=== PATIENT | male | born 1970 | race African-American/Black ===

== ENCOUNTER 2021-04-01 00:30 | Emergency (ER) | payer MEDICAID ==
[~2021-04-01] VITALS: Ht 162.6 cm; Wt 129.1 kg
[2021-04-01 00:42] VITALS: Ht 162.6 cm; Wt 129.1 kg
[2021-04-01] MEDS ORDERED: VITAMIN D-40010 MCG PO (00:44)
[2021-04-01] MEDS ORDERED: NORVASC5 MG PO (00:44)
[2021-04-01] MEDS ORDERED: [UNRECOGNIZED DRUG - REMARK] (00:45)
[2021-04-01 02:00] LABS: CALC OSMOLALITY 271 mosm/kg (275-300); CALCIUM 8.9 mg/dL (8.5-10.1); CARBON DIOXIDE 25.6 mmol/L (21.0-32.0); CHLORIDE - SERUM 104 mmol/L (98-107); CREATININE - SERUM 0.9 mg/dL (0.6-1.3); GLUCOSE 88 mg/dL (74-106); POTASSIUM - SERUM 3.8 mmol/L (3.5-5.1); SODIUM 137 mmol/L (136-145); UREA NITROGEN 10 mg/dL (7-18); eGFR NON AFRICAN AMERICAN > 90 mL/min (90-120)
[2021-04-01 02:12] LABS: ALBUMIN 3.6 g/dL (3.4-5.0); ALKALINE PHOSPHATASE 86 U/L (30-120); ALT (SGPT) 9 U/L (10-68); BILIRUBIN - TOTAL 0.28 mg/dL (0.2-1.3); PRO BNP 74 pg/mL (0-125); PROTEIN - SERUM 7.7 g/dL (6.4-8.2)
[2021-04-01 02:14] LABS: BASOPHILS 0.6 % (0-2); EOSINOPHILS 3.6 % (0-7); HEMOGLOBIN 12.8 g/dL (13.5-17.5); LYMPHOCYTES 30.9 % (15-50); MCH 27.5 pg (26.0-34.0); MCHC 32.1 g/dL (31.0-37.0); MCV 85.7 fL (80.0-100.0); MEAN PLATELET VOLUME 9.3 fL (7.4-10.4); MONOCYTES 3.7 % (2-11); NEUTROPHILS 61.2 % (40-80); PLATELET COUNT 214 10x3/uL (130-400); RBC 4.67 10x6/uL (4.20-6.10); RDW 15.7 % (11.5-14.5); WBC 6.7 10x3/uL (4.8-10.8)
[2021-04-01 04:16] VITALS: BP 154/98
[2021-04-01 05:09] LABS: CKMB 0.3 U/L (0.0-3.6); CREATINE KINASE 93 UL (21-232); TROPONIN-I < 0.017 ng/mL (0.000-0.060)
== END 2021-04-01 07:50 | disposition home or self-care (01) ==
LOC: D.ER 00:30
PROVIDERS: Emergency Medicine
DX: R60.9 Edema, unspecified (principal); I10 Essential (primary) hypertension